=== PATIENT | female | born 1950 | race Caucasian/White ===

== ENCOUNTER 2020-11-22 14:26 | Outpatient (CLI) | payer MEDICARE, BC, SELFPAY ==
--- NOTE | 2020-11-22 14:30 | ECG_ITS ---
Measurements Intervals [place] Rate: 52 P: 47 AK: 139 QRS: 51 QRSD: 93 T: 36 QT: 392 QTc: 366 Interpretive Statements SINUS BRADYCARDIA POSSIBLE LEFT ATRIAL ENLARGEMENT DELAYED PRECORDIAL R/S TRANSITION BASELINE ARTIFACT- I, II, III, AVR, AVL, AVF BORDERLINE ECG Electronically Signed On 11-22-2020 14:43:44 CDT by Devonte Kiser D.O.
== END 2020-11-22 14:27 | disposition home or self-care (01) ==
LOC: ANHSURGERY 14:29
PROVIDERS: PCP Family Medicine Adolescent Medicine; Visit Provider Orthopaedic Surgery
DX: Z01.810 Encounter for preprocedural cardiovascular examination (principal); I10 Essential (primary) hypertension; R00.1 Bradycardia, unspecified
CPT/HCPCS: 93005

== ENCOUNTER → 2020-11-29 01:11 | Outpatient (CLI) | payer MEDICARE, BC, SELFPAY ==
[2020-11-30 19:26] LABS: SARS-CoV-2 RNA PCR Negative
== END ==
PROVIDERS: PCP Family Medicine Adolescent Medicine; Visit Provider Orthopaedic Surgery
DX: Z01.812 Encounter for preprocedural laboratory examination (principal); Z20.822 Contact with and (suspected) exposure to COVID-19
CPT/HCPCS: C9803; U0003; U0005

== ENCOUNTER 2020-12-02 00:36 | Day surgery (SDC) | payer MEDICARE, BC, SELFPAY ==
[2020-11-21 09:48] VITALS: BMI 28.1
[2020-12-02] VITALS (7 sets, daily range): BP systolic 105–155; BP diastolic 54–74; PULSE 55–65; RESP 10–16; TEMP 36.1–36.4; O2SAT 93–100
[2020-12-02] MEDS: CELECOXIB 200 MG CAPSULE PO (06:38)
[2020-12-02] MEDS: ACETAMINOPHEN 500 MG TABLET 1000 MG PO (06:38)
--- NOTE | 2020-12-02 06:42 | WPDANESEPPF ---
Anes - Initial Pre Proc Eval Procedure: Operation Date: 12/02/20 07:30 Proposed Procedures p Left Knee Arthroscopy, Proceed As Indicated - Leo Hernandez MD Date/Time: 12/02/20 06:42 Surgeon: Leo Hernandez MD Pre Op Diagnosis: left knee medial meniscus tear Patient Data Age: 70 Gender: F Height: 5 ft 8 in Weight: 84 kg Allergies Allergy/AdvReac Type Severity Reaction Status Date / Time erythromycin base AdvReac Mild NAUSEA/VOMI Verified 12/02/20 06:30 TING Home Medications Medication Instructions Recorded Confirmed Type cetirizine 10 mg capsule 10 mg PO DAILY 09/06/20 12/02/20 History ibuprofen 200 mg tablet 400 mg PO Q6H PRN 09/06/20 12/02/20 History rosuvastatin 5 mg tablet 5 mg PO DAILY 09/06/20 12/02/20 History chlorhexidine gluconate 4 % 1 applic TOPICAL ONCE #237 ml 10/06/20 12/02/20 Rx topical liquid alprazolam [Xanax] 0.25 mg PO BID PRN 11/21/20 12/02/20 History cholecalciferol (vitamin D3) 125 mcg PO DAILY 11/21/20 12/02/20 History clonazepam 1 mg PO HS 11/21/20 12/02/20 History cyanocobalamin (vitamin B-12) 500 mcg PO DAILY 11/21/20 12/02/20 History cyclosporine [Restasis] 1 drp EACH EYE HS 11/21/20 12/02/20 History esomeprazole magnesium [Nexium] 20 mg PO DAILY 11/21/20 12/02/20 History metoprolol succinate 50 mg PO QAM 11/21/20 12/02/20 History Patient hx anesthesia problems: none Family hx anesthesia problems: none PMFSH Past Medical History Medical History History of adverse reaction to anesthesia Nausea Hypertension Light headedness Wears glasses Surgical History Surgical History History of cholecystectomy History of tonsillectomy Family History Family History Other High cholesterol Hypertension Social History Social History Smoking status: Never smoker Alcohol use details: FEW DRINKS/MONTH Substance use: never Living arrangements: alone Gender identity (if verbalized by the patient): Female Spiritual care concerns: No Anes - Eval Final PreProcedure Day of Procedure 12/02/20 06:42 Patient weight: overweight Heart: regular rate and rhythm Lungs: clear to auscultation Airway: Mallampati scale class II Neurological: alert and oriented Last oral intake: >/= 8 hours ASA classification: III Emergent: no Anesthetic plan: proceed Anesthesia type and monitoring: general LMA and standard monitoring Informed Consent: The patient's anesthetic plan and its attendant risks and benefits were discussed with the patient/family/POA. Questions were solicited and answers provided to the satisfaction of the patient/family/POA.
[2020-12-02] MEDS: LACTATED RINGERS 1,000 ML 30 ML IV CONT ×2 (06:46→08:37)
--- NOTE | 2020-12-02 07:21 | WPDHPUPDATE1 ---
History and Physical Update Update Date/Time: 12/02/20 07:21 History and Physical has been reviewed, including an updated exam of the patient. There are NO changes in the patient's condition. Risks, benefits, and alternatives have been discussed and questions answered. Patient agrees to proceed with procedure.
--- NOTE | 2020-12-02 07:25 | PM.IMHP ---
H&P: HPI History of Present Illness Date/Time: 12/02/20 07:25 SUBHASH PRESENTS TODAY WITH LEFT KNEE PAIN AND SHE IS HERE FOR LEFT KNEE SCOPE FOR INTERNAL DERANGEMENT AND MENISCUS TEAR. HER PAIN CONTINUES AND HAS NOT IMPROVED. Chief Complaint: LEFT KNEE PAIN Review of Systems Review of Systems: All systems reviewed & are unremarkable except as noted in HPI and below PMFSH Past Medical History Medical History History of adverse reaction to anesthesia Nausea Hypertension Light headedness Wears glasses Surgical History Surgical History History of cholecystectomy History of tonsillectomy Family History Family History Other High cholesterol Hypertension Social History Social History Smoking status: Never smoker Alcohol use details: FEW DRINKS/MONTH Substance use: never Living arrangements: alone Gender identity (if verbalized by the patient): Female Spiritual care concerns: No Meds Home Medications and Allergies Home Medications Medication Instructions Recorded Confirmed Type cetirizine 10 mg capsule 10 mg PO DAILY 09/06/20 12/02/20 History ibuprofen 200 mg tablet 400 mg PO Q6H PRN 09/06/20 12/02/20 History rosuvastatin 5 mg tablet 5 mg PO DAILY 09/06/20 12/02/20 History chlorhexidine gluconate 4 % 1 applic TOPICAL ONCE #237 ml 10/06/20 12/02/20 Rx topical liquid alprazolam [Xanax] 0.25 mg PO BID PRN 11/21/20 12/02/20 History cholecalciferol (vitamin D3) 125 mcg PO DAILY 11/21/20 12/02/20 History clonazepam 1 mg PO HS 11/21/20 12/02/20 History cyanocobalamin (vitamin B-12) 500 mcg PO DAILY 11/21/20 12/02/20 History cyclosporine [Restasis] 1 drp EACH EYE HS 11/21/20 12/02/20 History esomeprazole magnesium [Nexium] 20 mg PO DAILY 11/21/20 12/02/20 History metoprolol succinate 50 mg PO QAM 11/21/20 12/02/20 History Allergies Allergy/AdvReac Type Severity Reaction Status Date / Time erythromycin base AdvReac Mild NAUSEA/VOMI Verified 12/02/20 06:30 TING Vital Signs Vital Signs - 24 hr 12/02/20 06:24 Temperature 36.4 C Pulse Rate 65 Respiratory Rate 16 Blood Pressure 153/71 H Pulse Oximetry 99 Exam Extrem: General: capillary refill normal, no clubbing and no cyanosis Right lower extremity: normal to inspection, full ROM, normal capillary refill and knee; no cyanosis and no edema Left lower extremity: normal to inspection, normal capillary refill, knee Details: tenderness, swelling, abnormal ROM (0 TO 120 DEG) Details: pain with active ROM Details: with extension and with flexion and pain with passive ROM Details: with extension and with flexion, knee ligament exam abnormal, Tiffanie's Test Details: positive medially and laterally and crepitus; no ecchymosis and foot; abnormal ROM, no cyanosis, no edema and joint enlargement noted Assessment and Plan Additional Plan LEFT KNEE PAIN WITH INTERNAL DERANGEMENT HERE FOR KNEE SCOPE. WE DISCUSSED ONCE AGSAIN THE PROCEDURE IN DETAIL.. SHE WOULD LIKE TO PROCEED.
[2020-12-02] MEDS: ceFAZolin 2 GM/D5W 50 ML 2 GM/50 ML BAG IVPB (07:38)
[2020-12-02] MEDS: BUPIVACAINE HCL 0.5% PF 30 ML VIAL INFILTRATE (08:29)
--- NOTE | 2020-12-02 08:37 | PM.PROC ---
Procedure Note - Detailed Date of procedure: 12/02/20 Pre-op diagnosis: left knee medial meniscus tear Post-op diagnosis: same Procedure performed: LEFT KNEE SCOPE WITH PARTIAL MEDIAL MENISCECTOMY AND MINOR SYNOVECTOMY Description of procedure: PATIENT WAS TAKEN TO THE OR. LEFT LEG WAS PREPPED AND DRAPED STERILE. TROCARS WERE PLACED IN THE USUAL FASHION. CAMERA WAS INTRODUCED. THERE WAS CHONDROMALACIA TO THE PATELLA FEMORAL JOINT. THERE WAS A MODERATE AMOUNT OF SYNOVITIS. THE MEDIAL COMPARTMENT SHOWED CHONDROMALACIA TO THE MEDIAL FEMORAL CONDYLE. A SHAVER WAS USED TO PREFORM A CHONDROPLASTY. THERE WAS A COMPLEX MEDIAL MENISCUS TEAR. THE TEAR WAS RESECTED WITH A BITER AND A SHAVER DOWN TO A SMOOTH BASE. ABOUT 15% OF THE MENISCUS WAS REMOVED. THE ACL WAS INTACT. THE LATERAL MENISCUS WAS NOT TORN. THE LATERAL COMPARTMENT HAD NO CHONDROMALACIA. THERE WAS GRADE 3 CHONDROMALACIA IN THE PATELLO FEMORAL JOINT. CHONDROPLASTY WAS PREFORMED. SYNOVECTOMY WAS PREFORMED IN THE SUPERIOR MEDIAL COMPARTMENT. THE WOUNDS WERE APPROXIMATED WITH 4.0 NYLON. STERILE DRESSING WAS APPLIED. PATIENT WAS EXTUBATED. Anesthesia: GLMA Surgeon: Leo Hernandez MD Estimated blood loss (mL): 5 Complications: No immediate complications Condition: stable Disposition: PACU
[2020-12-02] MEDS: fentaNYL CITRATE INJ (*CRX) 100 MCG/2 ML VIAL 25 MCG IV PUSH (09:15)
[2020-12-02] MEDS: oxyCODONE HCL (*CRX) 5 MG TAB IR PO (09:52)
--- NOTE | 2020-12-02 10:29 | SUR.PHASEII ---
PATIENT ASKED TO SPEAK WITH DR. ALANIZ; DR. ALANIZ COMING TO SPEAK TO HER.
--- NOTE | 2020-12-02 10:40 | SUR.PHASEII ---
PATIENT DRESSED, SITTING IN WHEELCHAIR, WAITING FOR DR. ZULETA WHO JUST ARRIVED TO SPEAK TO PT.
== END 2020-12-02 10:45 | disposition home or self-care (01) ==
PROVIDERS: PCP Family Medicine Adolescent Medicine; Visit Provider Orthopaedic Surgery
PROC: (CPT 29870; principal; 2020-12-02 07:30)
DX: M23.332 Other meniscus derangements, other medial meniscus, left knee (principal); M65.862 Other synovitis and tenosynovitis, left lower leg; M22.42 Chondromalacia patellae, left knee; I10 Essential (primary) hypertension
CPT/HCPCS: 29881; A9270; J0690; J1100; J2250; J2405; J2704; J3010; J7120

== ENCOUNTER → 2021-05-16 04:07 | Outpatient (CLI) | payer MEDICARE, BC, SELFPAY ==
[2021-05-16 16:54] LABS: SARS-CoV-2 RNA PCR Negative
== END ==
PROVIDERS: PCP Family Medicine Adolescent Medicine; Visit Provider Family Medicine Adolescent Medicine
DX: R05.9 Cough, unspecified (principal); R09.81 Nasal congestion; J02.9 Acute pharyngitis, unspecified; Z20.822 Contact with and (suspected) exposure to COVID-19
CPT/HCPCS: C9803; U0003; U0005

== ENCOUNTER → 2021-11-01 12:44 | Outpatient (CLI) | payer MEDICARE, BC, SELFPAY ==
--- NOTE | ~2021-11-01 | DEXA_ITS ---
Bone Density Report Name: SUBHASH OTOOLE Age: 70 Sex: Female Ethnicity: White Date of : 1950 Indication: postmenopausal; screening for osteoporosis; height loss; Referring Provider: LUIS BULLOCK Study: Bone densitometry was performed. Exam Date: November 01, 2021 Accession number: [id number] Bone Density: Region BMD T-score Z-score Classification AP Spine (L1-L4) 0.871 -1.6 0.5 Osteopenia Femoral Neck (Left) 0.613 -2.1 -0.3 Osteopenia Total Hip (Left) 0.836 -0.9 0.6 Normal Femoral Neck (Right) 0.571 -2.5 -0.7 Osteoporosis Total Hip (Right) 0.809 -1.1 0.4 Osteopenia Total Hip Mean 0.823 -1.0 0.5 Normal World Health Organization criteria for BMD impression classify patients as: Normal (T-score at or above -1.0), Osteopenia (T-score between -1.0 and -2.5), or Osteoporosis (T-score at or below -2.5). 10-year Fracture Risk: FRAX not reported because: Some T-score for Spine Total or Hip Total or Femoral Neck at or below -2.5 Previous Exams: Region Exam Age BMD T-score BMD Change BMD Change Date g/cm2 vs Baseline vs Previous AP Spine(L1-L4) 11/01/2021 70 0.871 -1.6 -0.158* -0.124* 11/27/2010 60 0.995 -0.5 -0.033* -0.033* 03/29/2005 54 1.028 -0.2 Total Hip(Left) 11/01/2021 70 0.836 -0.9 -0.189* -0.158* 11/27/2010 60 0.994 0.4 -0.031* -0.031* 03/29/2005 54 1.025 0.7 Total Hip(Right) 11/01/2021 70 0.809 -1.1 -0.110* -0.072* 11/27/2010 60 0.880 -0.5 -0.038* -0.038* 03/29/2005 54 0.918 -0.2 *Denotes significance at 95% confidence level, LSC for AP Spine = 0.022 g/cm2, LSC for Total Hip = 0.027 g/cm2 Clinical Information Provided by Patient: Has used the following medications: Vitamin D Patient maximum height was 68 Menopause Age: 56 Onset of menses at age 14 Number of children 0 Impression: The patient has osteoporosis, based on the Right Femoral Neck T-score. The BMD for the AP Spine(L1-L4) decreased, changing by -0.124 since the last DXA exam. The BMD for the Total Hip(Left) decreased, changing by -0.158 since the last DXA exam. The BMD for the Total Hip(Right) decreased, changing by -0.072 since the last DXA exam. Discussion: INCREASED RISK OF FRACTURE. BONE DENSITY IS UNDESIRABLY LOW AT ONE OR MORE SKELETAL SITES, CONSISTENT WITH POSTMENOPAUSAL OSTEOPOROSIS. This patient's lowest T-score meets the World Hea
== END ==
PROVIDERS: PCP Family Medicine Adolescent Medicine; Visit Provider Family Medicine Adolescent Medicine
DX: Z78.0 Asymptomatic menopausal state (principal); M85.88 Other specified disorders of bone density and structure, other site; M85.852 Other specified disorders of bone density and structure, left thigh; M85.851 Other specified disorders of bone density and structure, right thigh; M81.0 Age-related osteoporosis without current pathological fracture
CPT/HCPCS: 77080

== ENCOUNTER → 2023-06-03 13:40 | Outpatient (CLI) | payer MEDICARE, BC, SELFPAY ==
--- NOTE | ~2023-06-03 | MM_ITS ---
EXAMINATION: MM screening [facility] BI w zhang HISTORY: Screening mammogram TECHNIQUE: Craniocaudal and mediolateral oblique 3-D tomosynthesis images were obtained and synthetic 2-D images were generated. CAD analysis was submitted and interpreted. COMPARISON: 11/27/2010 screening mammogram BREAST PARENCHYMAL COMPOSITION: There are scattered areas of fibroglandular density.... FINDINGS: Circumscribed opacities likely consistent with intramammary lymph nodes are noted in the upper outer left breast anteriorly, likely present on 11/27/2010. There is no evidence of suspicious mass, calcifi cation, or architectural distortion to suggest malignancy in either breast. There has been no suspici ous interval change. IMPRESSION: 1. No mammographic evidence of malignancy. 2. Recommend routine screening mammography in one year. BI-RADS Category 2: Benign finding(s). Reviewed, dictated and finalized at location A. W[employer] ANALYST
== END ==
PROVIDERS: PCP Nurse Practitioner Family; Visit Provider Nurse Practitioner Family
DX: Z12.31 Encounter for screening mammogram for malignant neoplasm of breast (principal)
CPT/HCPCS: 77063; 77067

== ENCOUNTER 2024-03-24 11:44 | Outpatient (CLI) | payer MEDICARE, BC, SELFPAY ==
--- NOTE | ~2024-03-24 | DEXA_ITS ---
Bone Density Report Name: SUBHASH OTOOLE Age: 73 Sex: Female Ethnicity: White Date of : 1950 Indication: postmenopausal; screening for osteoporosis; height loss; Referring Provider: ALIX CARMICHAEL Study: Bone densitometry was performed. Exam Date: March 24, 2024 Accession number: [id number] Bone Density: Region BMD T-score Z-score Classification AP Spine(L2, L3, L4) 0.949 -1.2 1.1 Osteopenia Femoral Neck (Left) 0.633 -1.9 0.0 Osteopenia Total Hip (Left) 0.809 -1.1 0.5 Osteopenia Femoral Neck (Right) 0.601 -2.2 -0.3 Osteopenia Total Hip (Right) 0.785 -1.3 0.3 Osteopenia Femoral Neck Mean 0.617 -2.1 -0.2 Osteopenia Total Hip Mean 0.797 -1.2 0.4 Osteopenia World Health Organization criteria for BMD impression classify patients as: Normal (T-score at or above -1.0), Osteopenia (T-score between -1.0 and -2.5), or Osteoporosis (T-score at or below -2.5). 10-year Fracture Risk: FRAX not reported because: Treated for osteoporosis Clinical Information Provided by Patient: Is being treated for osteoporosis Has used the following medications: Fosamax (i.e. alendronate), Vitamin D, Calcium Patient maximum height was 68 Menopause Age: 51 No regular weight bearing exercise Drinks caffeinated beverages Onset of menses at age 14 Number of children 0 Impression: The patient has low bone mass, based on the Right Femoral Neck T-score. Discussion: It is important to ask patients whether they are taking their medications and to encourage continued and appropriate compliance with their osteoporosis therapies to reduce fracture risk. It is also important to review their risk factors and encourage appropriate calcium and vitamin D intakes, exercise, fall prevention and other lifestyle measures. Follow-Up: Consider a repeat BMD and Vertebral Fracture Assessment (VFA) exam in 2 years or sooner if medically necessary, to reassess this patient's status. Reported by: KRISTY on 03/24/2024 12:07:00 PM. Reviewed, dictated and finalized at location AVikram SPICER
== END 2024-03-24 11:45 | disposition home or self-care (01) ==
LOC: CHSIMG 11:47
PROVIDERS: Visit Provider Nurse Practitioner Family
DX: Z78.0 Asymptomatic menopausal state (principal); M85.89 Other specified disorders of bone density and structure, multiple sites
CPT/HCPCS: 77080